=== PATIENT | male | born 1975 | race American Indian/Alaskan Native ===

== ENCOUNTER 2017-05-27 21:26 | Emergency (ER) | payer SELFPAY ==
[2017-05-27 21:33] VITALS: BP 144/95
[2017-05-27 22:00] LABS: Basophils # (Auto) 0.1 K/mm3 (0.0-0.1); Basophils % (Auto) 0.9 % (0.0-1.8); Eosinophils # (Auto) 0.1 K/mm3 (0.0-0.4); Eosinophils % (Auto) 0.8 % (0.0-4.3); Hematocrit 43.9 % (35.5-45.6); Hemoglobin 14.1 gm/dl (11.8-15.2); Lymphocytes # (Auto) 2.6 K/mm3 (1.2-5.4); Mean Corpuscular HGB Conc 32 % (32-34); Mean Corpuscular Volume 76 fl (84-94); Monocytes # (Auto) 0.6 K/mm3 (0.0-0.8); Monocytes % (Auto) 6.6 % (0.0-7.3); Platelet Count 187 K/mm3 (140-440); Red Cell Distribution Width 13.8 % (13.2-15.2)
[2017-05-27 22:03] LABS: Mean Corpuscular Hemoglobin 24 pg (28-32)
[2017-05-27 22:09] LABS: INR 0.81 (0.87-1.13)
[2017-05-27 22:10] LABS: Partial Thromboplastin Time 20.1 Sec. (24.2-36.6)
[2017-05-27 22:14] LABS: Alanine Aminotransferase 22 units/L (7-56); Albumin 4.4 g/dL (3.9-5); BUN/Creatinine Ratio 21; Blood Urea Nitrogen 15 mg/dL (9-20); Calcium 9.4 mg/dL (8.4-10.2); Hemolysis Index 44
[2017-05-28] MEDS ORDERED: TORADOL IM ONE (06:15)
--- NOTE | 2017-05-28 06:27 | Emergency Department Report ---
ED Extremity Problem HPI - General Chief complaint: Extremity Problem,Nontraumatic Stated complaint: RIGHT LEG PAIN Time Seen by Provider: 05/28/17 06:11 Source: patient Mode of arrival: Ambulatory Limitations: No Limitations - History of Present Illness Initial comments: Patient is 42 years old male with past medical history of tibia fracture secondary to an accident. He spent. Patient presented to the ER complaining of right leg pain for the last 2 weeks. Patient denied any new recent injury. 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 Patient is worried about blood clots in his leg. He denied any fever, shortness of breath , chest pain or swelling in his leg. Patient does not have any other complaint at this moment. MD Complaint: extremity pain -: week(s) Location: right History of Same: Yes Severity scale (0 -10): 5 Consistency: intermittent - Related Data Allergies Allergy/AdvReac Type Severity Reaction Status Date / Time No Known Allergies Allergy Verified 05/27/17 21:29 ED Review of Systems ROS: Stated complaint: RIGHT LEG PAIN Other details as noted in HPI Comment: All other systems reviewed and negative Constitutional: denies: chills, fever Respiratory: denies: cough, orthopnea, shortness of breath, SOB with exertion, SOB at rest Cardiovascular: denies: chest pain, palpitations Gastrointestinal: denies: abdominal pain, nausea, vomiting Genitourinary: denies: urgency, dysuria, frequency, hematuria, discharge, testicular pain Musculoskeletal: joint swelling, arthralgia Skin: denies: rash, lesions, change in color Neurological: denies: headache, weakness, numbness, paresthesias ED Past Medical Hx - Past Medical History Previous Medical History?: No Hx Diabetes: Yes (type 2) - Surgical History Past Surgical History?: Yes Additional Surgical History: back ankle - Social History Smoking Status: Never Smoker Substance Use Type: None ED Physical Exam - General Limitations: No Limitations General appearance: alert, in no apparent distress - Head Head exam: Present: atraumatic, normocephalic, normal inspection - Eye Eye exam: Present: normal appearance, PERRL - ENT ENT exam: Present: normal exam, normal orophraynx, mucous membranes moist - Neck Neck exam: Present: normal inspection, full ROM. Absent: tenderness, meningismus, lymphadenopathy, thyromegaly - Respiratory Respiratory exam: Present: normal lung sounds bilaterally. Absent: respiratory distress, wheezes, rales, rhonchi - Cardiovascular Cardiovascular Exam: Present: regular rate, normal rhythm, normal heart sounds - GI/Abdominal GI/Abdominal exam: Present: soft, normal bowel sounds. Absent: distended, tenderness, guarding, rebound, rigid, organomegaly, mass, bruit, pulsatile mass , hernia - Extremities Exam Extremities exam: Present: normal inspection, full ROM, normal capillary refill , other (mild swelling and tenderness to the upper anterior leg.). Absent: pedal edema, joint swelling, calf tenderness - Back Exam Back exam: Present: normal inspection, full ROM. Absent: CVA tenderness (R), CVA tenderness (L), muscle spasm, paraspinal tenderness, vertebral tenderness - Neurological Exam Neurological exam: Present: alert, oriented X3, CN II-XII intact, normal gait, reflexes normal. Absent: abnormal gait, motor sensory deficit - Skin Skin exam: Present: warm, intact, normal color ED Course Vital Signs 05/27/17 05/28/17 21:29 04:15 Temperature 98.1 F Pulse Rate 96 H Respiratory 16 16 Rate Blood Pressure 144/95 O2 Sat by Pulse 95 95 Oximetry - Reevaluation(s) Reevaluation #1: 05/28/17 07:04 Patient is stated that he is feeling much better. I informed him about his x- rays which she did not show anything acute. I advised patient to follow up with his primary care physician for further evaluation if needed. ED Medical Decision Making - Lab Data Result diagrams: 05/27/17 21:42 05/27/17 21:42 Critical care attestation.: If time is entered above; I have spent that time in minutes in the direct care of this critically ill patient, excluding procedure time. ED Disposition Clinical Impression: Right leg pain Disposition: DC-01 TO HOME OR SELFCARE Is pt being admited?: No Condition: Stable Instructions: Knee Pain (ED), Arthralgia (ED) Referrals: JANELL CARMEN [Primary Care Provider] - 3-5 Days
--- NOTE | 2017-05-28 07:24 | XRay Report ---
FINAL REPORT EXAM: XR TIBIA FIBULA 2V RT, XR KNEE 3V RT HISTORY: Leg pain, status post injury. TECHNIQUE: Three radiographs of the right knee and three additional radiographs of the right lower leg were obtained. No prior studies are available for comparison. FINDINGS: There is a sideplate with multiple screws along the lateral aspect of the mid to distal tibial shaft. There is an additional sideplate and screws at the distal posterior aspect of the tibia. There are 2 oblique screws extending through the medial malleolus. There is associated mild deformity of the distal tibia in keeping with prior fracture repair, with mild hypertrophic degenerative changes. There is anatomic alignment. There is no acute fracture or dislocation. There is a 1.7 cm linear radiolucency in the mid tibial shaft, representing screw defect versus prominent vascular channel. No other discrete osseous abnormality is seen. There is no significant joint effusion at the right knee. IMPRESSION: 1. No acute fracture or dislocation. 2. Postoperative changes in the mid to distal tibia, in anatomic alignment, as described.
== END 2017-05-28 07:08 | disposition home or self-care (01) ==
LOC: ED 21:26
DX: M79.604 Pain in right leg (principal); E11.9 Type 2 diabetes mellitus without complications
CPT/HCPCS: 36415; 73562; 73590; 80053; 85025; 85379; 85610; 85730; 99283; J1885